=== PATIENT | female | born 1995 | race Caucasian/White ===

== ENCOUNTER 2022-10-05 08:27 | Outpatient (CLI) | payer OTHER ==
[2022-10-05] MEDS ORDERED: BARIUM SULFATE 135 ML SUSP.RECON (E-Z-HD) PO ONE (08:49)
== END 2022-10-05 20:38 | disposition home or self-care (01) ==
LOC: SRD 08:27
DX: K29.60 Other gastritis without bleeding (principal)
CPT/HCPCS: 74220-TC